=== PATIENT | female | born 1945 | race Hispanic/Latino ===

== ENCOUNTER → 2022-01-29 | Day surgery (SDC) | payer OTHER ==
[2022-01-25 12:19] LABS: BASOPHILS % 0.6 % (0.0-1.0); EOSINOPHILS # (AUTO) 0.2 (0.0-0.4); EOSINOPHILS % 2.9 % (0.0-6.0); HEMATOCRIT 35.2 % (34.2-44.1); LYMPHOCYTES # (AUTO) 1.9 (1.0-3.2); LYMPHOCYTES % 27.5 % (18.0-39.1); MEAN CORPUSCULAR HEMOGLOBIN 27.2 pg (28-32); MEAN CORPUSCULAR HGB CONC 31.3 g/dL (31-35); MEAN CORPUSCULAR VOLUME 86.9 fL (81-99); MONOCYTES # (AUTO) 0.6 (0.2-0.8); MONOCYTES % 8.1 % (4.4-11.3); NEUTROPHILS # (AUTO) 4.1 (2.1-6.9); NEUTROPHILS % 60.8 % (38.7-80.0); PLATELET COUNT 106 x10e3/uL (140-360); RED BLOOD COUNT 4.05 x10e6/uL (3.6-5.1); RED CELL DISTRIBUTION WIDTH 13.6 % (11.7-14.4)
[2022-01-25 12:51] LABS: ALBUMIN 2.9 g/dL (3.5-5.0); ALBUMIN/GLOBULIN RATIO 0.7 (0.8-2.0); ANION GAP 15.3 mmol/L (8-16); CALCIUM 8.2 mg/dL (8.4-10.2); CHOL/HDL RATIO 2.6 (3.0-3.6); CREATININE, SERUM 2.22 mg/dL (0.57-1.11); POTASSIUM 4.3 mmol/L (3.5-5.1)
[2022-01-29] VITALS (20 sets, daily range): BP systolic 105–195; BP diastolic 36–91
[~2022-01-29] VITALS: Ht 149.9 cm; Wt 60.3 kg
[~2022-01-29] MED LIST: ACETAMINOPHEN 325 MG TAB PO ONE; AMLODIPINE BESYLATE 10 MG TAB PO ONE; ARICEPT5 MG PO; ASPIRIN 325 MG TAB ONE; CLOPIDOGREL BISULFATE 75 MG TAB ONE; FENTANYL CITRATE/PF 100MCG/2 ML INJ ONE; HEPARIN SOD (PORCINE) 1000 UNIT/ML 30ML ONE; HEPARIN SOD/SOD CHLORIDE 2,000 ML ONE; HYDRALAZINE HCL 20 MG/ML VIAL IV STA; HYDRALAZINE HCL 20 MG/ML VIAL ONE; INSULIN; IOPAMIDOL 300MG/ML 100 ML INFUS..BTL IV ONE; LIDOCAINE HCL 1% LOCAL INJ 20 ML VIAL ONE; LOSARTAN POTAS100 MG PO; LOSARTAN POTASS25 MG PO; MIDAZOLAM HCL 2 MG/2 ML VIAL ONE; NEURONTIN100 MG PO; NITROGLYCERIN/D5W 200 MCG/ML 250 ML ONE; SODIUM CHLORIDE 0.9% 1000ML 1,000 ML ONE; TRICOR48 MG PO; VERAPAMIL HCL 2.5 MG/ML 2 ML VIAL ONE; VITAMIN D3250 MC1
== END | disposition home or self-care (01) ==
LOC: CATH LAB 06:35
PROVIDERS: ATTEND Internal Medicine
DX: I70.263 Atherosclerosis of native arteries of extremities with gangrene, bilateral legs (principal); I10 Essential (primary) hypertension; E78.5 Hyperlipidemia, unspecified; E11.9 Type 2 diabetes mellitus without complications; Z01.812 Encounter for preprocedural laboratory examination; Z20.822 Contact with and (suspected) exposure to COVID-19; Z79.899 Other long term (current) drug therapy; Z82.49 Family history of ischemic heart disease and other diseases of the circulatory system; Z83.3 Family history of diabetes mellitus; Z82.3 Family history of stroke
CPT/HCPCS: 36247; 36415; 37229; 75625; 75716; 80053; 80061; 85025; 99152; 99153; C1724; C1725; C1760; C1769; C1887; C1894; J0360; J1644; J2001; J2250; J3010; J7030; Q9967; U0002

== ENCOUNTER 2022-03-17 14:38 | Observation (INO) | payer OTHER ==
[~2022-03-17] VITALS: Ht 149.9 cm; Wt 60.3 kg
[~2022-03-17 14:38] MED LIST changes: -ACETAMINOPHEN 325 MG TAB PO ONE; -AMLODIPINE BESYLATE 10 MG TAB PO ONE; -ASPIRIN 325 MG TAB ONE; -CLOPIDOGREL BISULFATE 75 MG TAB ONE; -FENTANYL CITRATE/PF 100MCG/2 ML INJ ONE; -HEPARIN SOD (PORCINE) 1000 UNIT/ML 30ML ONE; -HEPARIN SOD/SOD CHLORIDE 2,000 ML ONE; -HYDRALAZINE HCL 20 MG/ML VIAL IV STA; -HYDRALAZINE HCL 20 MG/ML VIAL ONE; -IOPAMIDOL 300MG/ML 100 ML INFUS..BTL IV ONE; -LIDOCAINE HCL 1% LOCAL INJ 20 ML VIAL ONE; -MIDAZOLAM HCL 2 MG/2 ML VIAL ONE; -NITROGLYCERIN/D5W 200 MCG/ML 250 ML ONE; -SODIUM CHLORIDE 0.9% 1000ML 1,000 ML ONE; -VERAPAMIL HCL 2.5 MG/ML 2 ML VIAL ONE
[2022-03-17] MEDS ORDERED: SODIUM CHLORIDE 0.9% 1000ML 1,000 ML IV SCH (15:00)
[2022-03-17] MEDS ORDERED: SODIUM CHLORIDE FLUSH 10 ML SYR IV PRN (15:00)
[2022-03-17] MEDS ORDERED: SODIUM CHLORIDE 0.9% 1000ML 1,000 ML ONE (15:04)
[2022-03-17 15:44] LABS: BASOPHILS # (AUTO) 0.1 (0.0-0.1); BASOPHILS % 0.8 % (0.0-1.0); EOSINOPHILS # (AUTO) 0.2 (0.0-0.4); EOSINOPHILS % 2.3 % (0.0-6.0); HEMATOCRIT 36.3 % (34.2-44.1); HEMOGLOBIN 11.1 g/dL (12.0-16.0); LYMPHOCYTES # (AUTO) 1.7 (1.0-3.2); LYMPHOCYTES % 22.6 % (18.0-39.1); MEAN CORPUSCULAR HEMOGLOBIN 26.6 pg (28-32); MEAN CORPUSCULAR HGB CONC 30.6 g/dL (31-35); MEAN CORPUSCULAR VOLUME 87.1 fL (81-99); MONOCYTES # (AUTO) 0.6 (0.2-0.8); MONOCYTES % 7.2 % (4.4-11.3); NEUTROPHILS # (AUTO) 5.1 (2.1-6.9); NEUTROPHILS % 66.8 % (38.7-80.0); PLATELET COUNT 257 x10e3/uL (140-360); RED BLOOD COUNT 4.17 x10e6/uL (3.6-5.1); RED CELL DISTRIBUTION WIDTH 14.2 % (11.7-14.4)
[2022-03-17 15:55] LABS: INR 0.8; PROTHROMBIN TIME 11.8 seconds (11.9-14.5)
[2022-03-17 15:56] LABS: PARTIAL THROMBOPLASTIN TIME 24.9 seconds (23.8-35.5)
[2022-03-17 16:03] LABS: ALBUMIN 3.1 g/dL (3.5-5.0); ALBUMIN/GLOBULIN RATIO 0.6 (0.8-2.0); ANION GAP 17.9 mmol/L (8-16); CALCIUM 8.8 mg/dL (8.4-10.2); CREATININE, SERUM 2.21 mg/dL (0.57-1.11); POTASSIUM 4.9 mmol/L (3.5-5.1)
[2022-03-17 17:15] LABS: CLARITY,URINE CLOUDY (CLEAR); COLOR,URINE YELLOW (YELLOW)
[2022-03-17] MEDS ORDERED: DEXTROSE 50% SYRINGE 50 ML IV PRN ×2 (17:15→21:45)
[2022-03-17] MEDS ORDERED: ONDANSETRON HCL INJ 2MG/ML 2ML 2 MG/ML VIAL IV PRN (17:15)
[2022-03-17 17:16] LABS: AMPHETAMINES SCREEN,URINE NEGATIVE (NEGATIVE); BENZODIAZEPINES SCREEN,URINE NEGATIVE (NEGATIVE); PHENCYCLIDINE SCREEN,URINE NEGATIVE (NEGATIVE)
[2022-03-17 17:18] LABS: KETONES,URINE NEGATIVE (NEGATIVE); LEUKOCYTE ESTERASE ,URINE 1+ (NEGATIVE); NITRITE,URINE NEGATIVE (NEGATIVE); PROTEIN,URINE DIPSTICK >=300 (NEGATIVE)
[2022-03-17 17:19] LABS: URINE UROBILINOGEN 0.2 mg/dL (0.2 - 1)
[2022-03-17 17:24] LABS: RBC,URINE >50 /HPF (0-5); WBC,URINE (MAN) >50 /HPF (0-5)
[2022-03-17 17:25] LABS: BACTERIA,URINE MANY /HPF; EPITHELIAL CELLS,URINE FEW /LPF
[2022-03-17] MEDS: SODIUM CHLORIDE 0.9% 1000ML 1,000 ML IV SCH (19:10)
[2022-03-17 20:00] VITALS: BP 144/63
[2022-03-17] MEDS: INSULIN REGULAR, HUMAN 100 UNIT/1 ML SQ SCH (23:27)
[2022-03-18] VITALS (8 sets, daily range): BP systolic 104–162; BP diastolic 54–97
[2022-03-18] MEDS ORDERED: CLOPIDOGREL75 MG PO (00:09)
[2022-03-18] MEDS ORDERED: JANUVIA50 MG PO (00:09)
[2022-03-18] MEDS ORDERED: LIPITOR20 MG PO (00:09)
[2022-03-18] MEDS ORDERED: AMLODIPINE BESYL5 MG PO (00:09)
[2022-03-18] MEDS: SODIUM CHLORIDE 0.9% 1000ML 1,000 ML IV SCH ×3 (05:38→17:15)
[2022-03-18] MEDS: INSULIN REGULAR, HUMAN 100 UNIT/1 ML SQ SCH ×4 (07:30→22:21)
[2022-03-18 08:47] LABS: BASOPHILS # (AUTO) 0.1 (0.0-0.1); BASOPHILS % 0.7 % (0.0-1.0); EOSINOPHILS # (AUTO) 0.3 (0.0-0.4); EOSINOPHILS % 4.3 % (0.0-6.0); HEMATOCRIT 36.9 % (34.2-44.1); HEMOGLOBIN 11.2 g/dL (12.0-16.0); LYMPHOCYTES # (AUTO) 1.8 (1.0-3.2); LYMPHOCYTES % 26.5 % (18.0-39.1); MEAN CORPUSCULAR HEMOGLOBIN 27.1 pg (28-32); MEAN CORPUSCULAR HGB CONC 30.4 g/dL (31-35); MEAN CORPUSCULAR VOLUME 89.1 fL (81-99); MONOCYTES # (AUTO) 0.6 (0.2-0.8); MONOCYTES % 8.1 % (4.4-11.3); NEUTROPHILS # (AUTO) 4.1 (2.1-6.9); NEUTROPHILS % 59.8 % (38.7-80.0); PLATELET COUNT 215 x10e3/uL (140-360); RED BLOOD COUNT 4.14 x10e6/uL (3.6-5.1); RED CELL DISTRIBUTION WIDTH 14.1 % (11.7-14.4)
[2022-03-18 09:04] LABS: ALBUMIN 2.6 g/dL (3.5-5.0); ALBUMIN/GLOBULIN RATIO 0.7 (0.8-2.0); ANION GAP 13.6 mmol/L (8-16); CREATININE, SERUM 1.69 mg/dL (0.57-1.11); POTASSIUM 4.6 mmol/L (3.5-5.1)
[2022-03-18 09:24] LABS: CHOL/HDL RATIO 2.7 (3.0-3.6)
[2022-03-18] MEDS: METOPROLOL SUCCINATE 25 MG TAB XL PO SCH ×2 (16:46→22:16)
[2022-03-19] VITALS (7 sets, daily range): BP systolic 125–157; BP diastolic 53–97
[2022-03-19] MEDS: SODIUM CHLORIDE 0.9% 1000ML 1,000 ML IV SCH (05:03)
[2022-03-19] MEDS: METOPROLOL SUCCINATE 25 MG TAB XL PO SCH (08:57)
[2022-03-19] MEDS: INSULIN REGULAR, HUMAN 100 UNIT/1 ML SQ SCH ×2 (08:58→12:25)
[2022-03-19] MEDS ORDERED: SENNOSIDES 8.6 MG TAB PO SCH (09:00)
[2022-03-19] MEDS ORDERED: DOCUSATE SODIUM 100 MG CAP PO SCH (09:00)
[2022-03-19] MEDS ORDERED: NOVOLOG MI100 UNIT/1 SQ (09:08)
[2022-03-19] MEDS ORDERED: OZEMPIC0.25 MG/0. SC (09:09)
[2022-03-19] MEDS ORDERED: CEPHALEXIN500 MG PO (10:44)
[2022-03-19] MEDS ORDERED: TOPROL XL25 MG PO (10:44)
[2022-03-19] MEDS ORDERED: ONDANSETRON HCL 4 MG ORAL DISINTEGRATING TAB PO PRN (16:00)
== END 2022-03-19 16:20 | disposition home or self-care (01) ==
LOC: ER 14:51 → INTOOBSV 17:08 → ERHOLD 17:08 → MED/SURG3 20:00
PROVIDERS: ADMIT Internal Medicine; ATTEND Internal Medicine
DX: U07.1 COVID-19 (principal); I12.9 Hypertensive chronic kidney disease with stage 1 through stage 4 chronic kidney disease, or unspecified chronic kidney disease; N18.4 Chronic kidney disease, stage 4 (severe); F03.90 Unspecified dementia, unspecified severity, without behavioral disturbance, psychotic disturbance, mood disturbance, and anxiety; N39.0 Urinary tract infection, site not specified; E78.5 Hyperlipidemia, unspecified; E86.0 Dehydration; E11.649 Type 2 diabetes mellitus with hypoglycemia without coma; Z79.899 Other long term (current) drug therapy
CPT/HCPCS: 36415; 70450; 71045; 80053; 80061; 80307; 81001; 82948; 83036; 84484; 85025; 85610; 85730; 87086; 87186; 93005; 99284; G0378; J0696; J1817; J7030